=== PATIENT | male | born 1975 | race Caucasian/White ===

== ENCOUNTER 2017-07-02 23:04 | Emergency (ER) | payer MEDICAID ==
[2017-07-03 00:27] VITALS: BMI 31.8
[2017-07-03 00:28] VITALS: RESP 18
--- NOTE | 2017-07-03 00:34 | ED PDOC ---
Arrival/HPI - General Historian: Patient <Jc Wilder - Last Filed: 07/03/17 16:19> <Riki Lepe - Last Filed: 07/05/17 07:36> - General Chief Complaint: Anxiety Time Seen by Provider: 07/03/17 00:30 - History of Present Illness Narrative History of Present Illness (Text): 07/03/17 00:31 41 y/o male, pmh including asthma, nkda, c/o feeling anxious and unable to stay calm x 3 hours. Pt. stated that he can sleep but he feels anxious, no chest pain or shortness of breath, no palpitation, no night sweat, no dizziness, no headache or neck pain, no other medical or psychological complaints. (Jc Wilder) Past Medical History - Provider Review Nursing Documentation Reviewed: Yes - Past History Past History: No Previous - Infectious Disease Hx of Infectious Diseases: None - Psychiatric Hx Substance Use: No - Anesthesia Hx Anesthesia: No <Jc Wilder - Last Filed: 07/03/17 16:19> Family/Social History - Physician Review Nursing Documentation Reviewed: Yes Family/Social History: Unknown Family HX Smoking Status: Never Smoked Hx Alcohol Use: No Hx Substance Use: No <Jc Wilder - Last Filed: 07/03/17 16:19> Allergies/Home Meds <Jc Wilder - Last Filed: 07/03/17 16:19> <Riki Lepe - Last Filed: 07/05/17 07:36> Allergies/Adverse Reactions: Allergies No Known Allergies Allergy (Verified 07/24/16 18:48) Home Medications: Home Meds Medication Instructions Recorded Confirmed Loratadine [Allerclear] 10 mg PO DAILY 07/24/16 07/24/16 Promethazine DM [Phenergan DM 10 ml PO PRN PRN 07/24/16 07/24/16 Syrup] Review of Systems - Review of Systems Constitutional: absent: Fatigue, Fevers Eyes: absent: Vision Changes ENT: absent: Hearing Changes Respiratory: absent: SOB, Cough Cardiovascular: absent: Chest Pain Gastrointestinal: absent: Abdominal Pain, Nausea, Vomiting Neurological: absent: Headache, Dizziness, Focal Weakness Psychiatric: Anxiety. absent: Depression, Suicidal Ideation <Jc Wilder - Last Filed: 07/03/17 16:19> Physical Exam Vital Signs Reviewed: Yes Temperature: Afebrile Blood Pressure: Normal Pulse: Regular Respiratory Rate: Normal Appearance: Positive for: Well-Appearing, Non-Toxic, Comfortable Pain Distress: None Mental Status: Positive for: Alert and Oriented X 3 - Systems Exam Head: Present: Atraumatic, Normocephalic Pupils: Present: PERRL Extroacular Muscles: Present: EOMI Conjunctiva: Present: Normal Mouth: Present: Moist Mucous Membranes Neck: Present: Normal Range of Motion Respiratory/Chest: Present: Clear to Auscultation, Good Air Exchange. No: Respiratory Distress, Accessory Muscle Use Cardiovascular: Present: Regular Rate and Rhythm, Normal S1, S2. No: Murmurs Abdomen: Present: Normal Bowel Sounds. No: Tenderness, Distention, Peritoneal Signs Back: Present: Normal Inspection Upper Extremity: Present: Normal Inspection. No: Cyanosis, Edema Lower Extremity: Present: Normal Inspection. No: Edema Neurological: Present: GCS=15, Speech Normal, Motor Func Grossly Intact, Gait Normal, Memory Normal Skin: Present: Warm, Dry, Normal Color. No: Rashes Psychiatric: Present: Alert, Oriented x 3, Normal Insight, Normal Concentration <Jc Wilder - Last Filed: 07/03/17 16:19> Medical Decision Making - Lab Interpretations I have reviewed the lab results: Yes Interpretation: No clinic. lab abnormalty - RAD Interpretation Boiler Room Operator: Radiologist - EKG Interpretation Interpreted by ED Physician: Yes Type: 12 lead EKG <Jc Wilder - Last Filed: 07/03/17 16:19> <Riki Lepe - Last Filed: 07/05/17 07:36> ED Course and Treatment: 07/03/17 00:33 -labs -ekg/chest xray -xanax -observe and reassess 07/03/17 02:34 -EKG: NSR @ 63 BPM, no ST elevation or depression, no T wave inversion. -Chest xray show no acute findings -Labs are non-significant -Thyroid panels show no acute findings -Pt. feels asymptomatic now, refused PES evaluation, will discharge home. -Discharge home with education on stay hydrated, bed rest, avoid caffeine or energy drink, follow up with your own pmd within 2 days, return to the ER for any new or worsening signs or symptoms. (Jc Wilder) - Lab Interpretations Lab Results: 07/03/17 01:22 07/03/17 01:22 Lab Results 07/03/17 01:22: D-Dimer, Quantitative 0.25 07/03/17 01:22: Free T4 0.87, TSH 3rd Generation 2.34, Alcohol, Quantitative < 10 07/03/17 01:22: Sodium 140, Potassium 4.7, Chloride 101, Carbon Dioxide 29, Anion Gap 15, BUN 12, Creatinine 0.8, Est GFR ( Amer) > 60, Est GFR (Non- Af Amer) > 60, Random Glucose 97, Calcium 9.7, Magnesium 1.9, Total Bilirubin 0.6, AST 40, ALT 36, Alkaline Phosphatase 80, Total Protein 7.9, Albumin 4.4, Globulin 3.5, Albumin/Globulin Ratio 1.3 07/03/17 01:22: WBC 7.2, RBC 4.98, Hgb 14.3, Hct 40.6 L, MCV 81.5, MCH 28.7, MCHC 35.2, RDW 13.5, Plt Count 199, MPV 10.8, Gran % 72.0 H, Lymph % (Auto) 20.9 L, Calloway % (Auto) 5.0, Eos % (Auto) 1.5, Baso % (Auto) 0.6, Gran # 5.20, Lymph # 1.5, Calloway # 0.4, Eos # 0.1, Baso # 0.04 - RAD Interpretation Radiology Orders: 07/03/17 00:30 CHEST PORTABLE [RAD] Stat no active disease (Jc Wilder) - EKG Interpretation EKG Interpretation (Text): 07/03/17 00:47 NSR @ 63 BPM, no ST elevation or depression, no T wave inversion. (Jc Wilder) - Medication Orders Current Medication Orders: Discontinued Medications Alprazolam (Xanax) 0.5 mg PO STAT STA PRN Reason: Protocol Stop: 07/03/17 00:31 Last Admin: 07/03/17 01:58 Dose: 0.5 mg - PA / TUMBLER TENDER / Resident Statement / has reviewed & agrees with the documentation as recorded. <Riki Lepe - Last Filed: 07/05/17 07:36> Disposition/Present on Arrival - Present on Arrival Any Indicators Present on Arrival: No History of DVT/PE: No History of Uncontrolled Diabetes: No Urinary Catheter: No History of Decub. Ulcer: No History Surgical Site Infection Following: None - Disposition Have Diagnosis and Disposition been Completed?: Yes Disposition Time: 02:36 Patient Plan: Discharge <Jc Wilder - Last Filed: 07/03/17 16:19> <Riki Lepe - Last Filed: 07/05/17 07:36> - Disposition Diagnosis: General medical exam Disposition: HOME/ ROUTINE Condition: IMPROVED Additional Instructions: -Discharge home with education on stay hydrated, bed rest, avoid caffeine or energy drink, follow up with your own pmd within 2 days, return to the ER for any new or worsening signs or symptoms. Referrals: [facility] at [facility] [place] [Outside] - Follow up with primary Forms: [facility] (Moroccan), WORK NOTE
[2017-07-03 01:55] LABS: BASO # 0.04 K/mm3 (0.0-2.0); BASO % 0.6 % (0.0-3.0); EOS # 0.1 (0.0-0.7); EOS % 1.5 % (1.5-5.0); HEMOGLOBIN 14.3 g/dL (14.0-18.0); LYMPH # 1.5 (1.2-3.4); LYMPH % 20.9 % (22.0-35.0); MEAN CELL VOLUME 81.5 fl (80.0-105.0); MEAN CORPUSCULAR HEMOGLOBIN 28.7 pg (25.0-35.0); MEAN CORPUSCULAR HGB CONC 35.2 g/dl (31.0-37.0); MEAN PLATELET VOLUME 10.8 fl (7.0-11.0); MONO # 0.4 (0.1-0.6); PLATELET COUNT 199 10^3/uL (120.0-450.0); RBC 4.98 10^6/uL (3.5-6.1); RED CELL DISTRIBUTION WIDTH 13.5 % (11.5-14.5); WHITE BLOOD COUNT 7.2 10^3/ul (4.5-11.0)
[2017-07-03 02:04] LABS: ALB/GLOB RATIO 1.3 (1.1-1.8); ALBUMIN 4.4 g/dL (3.0-4.8); ALT/SGPT 36 U/L (7-56); AST/SGOT 40 U/L (15-59); BLOOD UREA NITROGEN 12 mg/dL (7-21); CALCIUM 9.7 mg/dL (8.4-10.5); GFR AFRICAN-AMERICAN > 60; GFR NON-AFRICAN AMERICAN > 60; MAGNESIUM 1.9 mg/dL (1.7-2.2)
[2017-07-03 02:20] LABS: FREE T4 0.87 ng/dL (0.78-2.19)
[2017-07-03 03:02] VITALS: BP 136/74; PULSE 78; TEMP 98.1; O2SAT 99
--- NOTE | 2017-07-03 08:05 | RAD ---
HISTORY: medical clearance COMPARISON: 07/24/2016 FINDINGS: LUNGS: No active pulmonary disease. PLEURA: No significant pleural effusion identified, no pneumothorax apparent. CARDIOVASCULAR: Normal. OSSEOUS STRUCTURES: No significant abnormalities. VISUALIZED UPPER ABDOMEN: Normal. OTHER FINDINGS: None. IMPRESSION: No active disease.
--- NOTE | 2017-07-03 19:43 | CARD ---
APPROVED REPORT EKG Measurement Heart [id number] <Conclusion> Normal sinus rhythm Normal ECG
== END 2017-07-03 03:00 | disposition home or self-care (01) ==
LOC: ED 23:04
DX: Z00.00 Encounter for general adult medical examination without abnormal findings (principal)